=== PATIENT | male | born 1970 | race Asian ===

== ENCOUNTER 2021-12-06 20:15 | Emergency (ER) | payer OTHER ==
[~2021-12-06] VITALS: Ht 170.2 cm; Wt 83.9 kg
--- NOTE | 2021-12-06 20:20 | NUR ---
Pt brought by , A&Ox4, pt presents to ER with LAC on L thumb finger , pt states he cut finger with knife while cooking, skin pink and warm, bleeding controlled, will cont to monitor.
[2021-12-06 20:23] VITALS: BP_SYST 156
[2021-12-06] MEDS ORDERED: DIPH-TET-PERTUS Vaccine 0.5 ML VIAL (ADACEL) I.M. ONE (21:00)
--- NOTE | 2021-12-06 22:59 | NUR ---
Dr Goodson placed pt in the [address].
--- NOTE | 2021-12-06 23:00 | NUR ---
CHARBEL Bansal examining patient in the [address].
[2021-12-06] MEDS ORDERED: BACITRACIN 1 GM OINT TP ONE (23:15)
[2021-12-06 23:25] VITALS: BP_SYST 156
--- NOTE | 2021-12-06 23:25 | NUR ---
Patient given written and verbal discharge instructions by Dr Goodson and verbalizes understanding. ER MD discussed with patient the results and treatment provided. Patient in stable condition. ID arm band removed. no Rx of given. Patient educated on pain management and to follow up with PMD. Pain Scale 0/10. Opportunity for questions provided and answered. Medication side effect fact sheet provided.
--- NOTE | 2021-12-06 23:59 | NUR ---
Piedad landa in [facility] - 12/06/21 at [address] gauthier placed pt in the [address].
== END 2021-12-06 23:25 | disposition home or self-care (01) ==
LOC: SED 20:15
DX: S61.012A Laceration without foreign body of left thumb without damage to nail, initial encounter (principal); W45.8XXA Other foreign body or object entering through skin, initial encounter; Y93.89 Activity, other specified; Y92.89 Other specified places as the place of occurrence of the external cause; Y99.8 Other external cause status
CPT/HCPCS: 99281